=== PATIENT | female | born 1960 | race Two or more races ===

== ENCOUNTER 2020-07-30 06:59 | Emergency (ER) | payer OTHER ==
[~2020-07-30] VITALS: Ht 157.5 cm; Wt 77.1 kg
[2020-07-30] MEDS ORDERED: CLARITIN10 M1 PO (07:34)
[2020-07-30] MEDS ORDERED: PRILOSEC OTC20 MG PO (07:35)
[2020-07-30] MEDS ORDERED: FLONASE16 GM NASAL (07:35)
[2020-07-30] MEDS ORDERED: LITHOBID300 M1 PO (07:36)
[2020-07-30] MEDS ORDERED: TOPROL XL25 M1 PO (07:36)
[2020-07-30] MEDS ORDERED: DIOVAN160 M1 PO (07:37)
[2020-07-30] MEDS ORDERED: NORVASC2.5 MG PO (07:37)
[2020-07-30] MEDS ORDERED: ADULT LOW DOSE81 M1 PO (07:37)
[2020-07-30] MEDS ORDERED: ATORVASTATIN CA40 MG PO (07:38)
[2020-07-30] MEDS ORDERED: LASIX20 MG PO (07:38)
[2020-07-30] MEDS ORDERED: WIXELA 250-501 EACH IH (07:38)
[2020-07-30] MEDS ORDERED: SYNTHROID50 MCG PO (07:38)
[2020-07-30] MEDS ORDERED: DITROPAN XL10 MG PO (07:39)
[2020-07-30] MEDS ORDERED: SINGULAIR10 MG PO (07:39)
[2020-07-30] MEDS ORDERED: SEROQUEL25 MG PO (07:40)
[2020-07-30] MEDS ORDERED: JANUVIA100 MG PO (07:40)
[2020-07-30] MEDS ORDERED: CLONAZEPAM0.5 MG PO (07:40)
[2020-07-30] MEDS ORDERED: TEMAZEPAM30 MG PO (07:41)
[2020-07-30] MEDS ORDERED: ANALPRAM HC 2.530 GM RECTAL (18:17)
== END 2020-07-30 08:55 | disposition home or self-care (01) ==
LOC: ER 06:59 → EDBD 07:47 → ER 08:55
DX: K62.5 Hemorrhage of anus and rectum (principal); R10.84 Generalized abdominal pain; Z93.3 Colostomy status

== ENCOUNTER 2020-07-30 11:43 | Emergency (ER) | payer OTHER ==
[~2020-07-30] VITALS: Ht 157.5 cm; Wt 77.1 kg
[~2020-07-30 11:43] MED LIST: ADULT LOW DOSE81 M1 PO; ATORVASTATIN CA40 MG PO; CLARITIN10 M1 PO; CLONAZEPAM0.5 MG PO; DIOVAN160 M1 PO; DITROPAN XL10 MG PO; FLONASE16 GM NASAL; JANUVIA100 MG PO; LASIX20 MG PO; LITHOBID300 M1 PO; NORVASC2.5 MG PO; PRILOSEC OTC20 MG PO; SEROQUEL25 MG PO; SINGULAIR10 MG PO; SYNTHROID50 MCG PO; TEMAZEPAM30 MG PO; TOPROL XL25 M1 PO; WIXELA 250-501 EACH IH
[2020-07-30] MEDS ORDERED: ANALPRAM HC 2.530 GM RECTAL (18:17)
== END 2020-07-30 18:29 | disposition home or self-care (01) ==
LOC: ER 11:43
DX: K62.5 Hemorrhage of anus and rectum (principal); Z93.3 Colostomy status

== ENCOUNTER 2020-09-08 06:04 | Day surgery (SDC) | payer OTHER ==
[~2020-09-08 06:04] MED LIST changes: +ANALPRAM HC 2.530 GM RECTAL
== END 2020-09-08 09:40 | disposition home or self-care (01) ==
LOC: AMB-ENDOS 06:04
PROVIDERS: ATTEND Surgery
DX: K94.09 Other complications of colostomy (principal); K62.89 Other specified diseases of anus and rectum; K43.5 Parastomal hernia without obstruction or gangrene; Z20.828 Contact with and (suspected) exposure to other viral communicable diseases

== ENCOUNTER 2020-10-09 11:30 | Inpatient (IN) | payer OTHER ==
[~2020-10-09] VITALS: Ht 157.5 cm; Wt 78.9 kg
[2020-10-12] MEDS ORDERED: WELLBUTRIN XL300 MG PO (08:16)
[2020-10-12] MEDS ORDERED: VITAMIN B122500 MCG PO (08:16)
[2020-10-12] MEDS ORDERED: WIXELA 250-501 EACH IH (08:17)
[2020-10-12] MEDS ORDERED: RELAF PO (08:17)
[2020-10-12] MEDS ORDERED: SYNTHROID50 MCG PO (08:18)
[2020-10-12] MEDS ORDERED: CLONAZEPAM0.5 MG PO (08:19)
[2020-10-12] MEDS ORDERED: NAPROXEN500 MG PO (08:19)
[2020-10-12] MEDS ORDERED: LASIX20 MG PO (08:19)
[2020-10-12] MEDS ORDERED: GLIMEPIRIDE4 MG PO (08:20)
[2020-10-12] MEDS ORDERED: HYDRA PO (08:20)
[2020-10-12] MEDS ORDERED: DITROPAN XL10 MG PO (08:21)
[2020-10-12] MEDS ORDERED: DOLOGESIC 500-1 EACH PO (08:21)
[2020-10-12] MEDS ORDERED: VENTOLIN (08:22)
[2020-10-12] MEDS ORDERED: RESTORIL30 M1 PO (08:23)
[2020-10-12] MEDS ORDERED: [UNRECOGNIZED DRUG - OTHER] PO (08:23)
[2020-11-05] MEDS ORDERED: VENTOLIN HFA18 GM (15:48)
[2020-11-05] MEDS ORDERED: NABUMETONE500 MG (15:49)
[2020-11-17] MEDS ORDERED: OXYC1TAB9 PO (14:06)
[2020-11-17] MEDS ORDERED: INTESTINEX680 M1 PO (14:06)
== END 2020-11-17 17:16 | disposition home or self-care (01) | DRG 329 ==
LOC: EDBD 10-15 11:30 → SURH 10-15 11:30 → O/R 11-05 06:31 → SURH 11-05 11:30 → SURG 11-05 19:57
PROVIDERS: Surgery; ADMIT Surgery; ATTEND Surgery
PROC: 0WQF4ZZ Repair Abdominal Wall, Percutaneous Endoscopic Approach (ICD-10-PCS; 2020-11-05)
PROC: 0DTF4ZZ Resection of Right Large Intestine, Percutaneous Endoscopic Approach (ICD-10-PCS; principal; 2020-11-05 13:45)
PROC: 0DSK4ZZ Reposition Ascending Colon, Percutaneous Endoscopic Approach (ICD-10-PCS; 2020-11-05 13:45)
PROC: 4A12X4Z Monitoring of Cardiac Electrical Activity, External Approach (ICD-10-PCS; 2020-11-06)
PROC: BW2110Z Computerized Tomography (CT Scan) of Abdomen and Pelvis using Low Osmolar Contrast, Unenhanced and Enhanced (ICD-10-PCS; 2020-11-10)
DX: K94.00 Colostomy complication, unspecified (principal); K55.30 Necrotizing enterocolitis, unspecified; K43.0 Incisional hernia with obstruction, without gangrene; K57.32 Diverticulitis of large intestine without perforation or abscess without bleeding; K91.30 Postprocedural intestinal obstruction, unspecified as to partial versus complete; K43.5 Parastomal hernia without obstruction or gangrene; K52.3 Indeterminate colitis; R14.0 Abdominal distension (gaseous); I11.9 Hypertensive heart disease without heart failure; I25.10 Atherosclerotic heart disease of native coronary artery without angina pectoris; E11.9 Type 2 diabetes mellitus without complications; G47.33 Obstructive sleep apnea (adult) (pediatric); E66.01 Morbid (severe) obesity due to excess calories; Z20.822 Contact with and (suspected) exposure to COVID-19; J45.40 Moderate persistent asthma, uncomplicated

== ENCOUNTER 2020-11-04 10:42 | Outpatient (CLI) | payer OTHER ==
[~2020-11-04 10:42] MED LIST changes: +DOLOGESIC 500-1 EACH PO; +GLIMEPIRIDE4 MG PO; +HYDRA PO; +NAPROXEN500 MG PO; +RELAF PO; +RESTORIL30 M1 PO; +VENTOLIN; +VITAMIN B122500 MCG PO; +WELLBUTRIN XL300 MG PO; +[UNRECOGNIZED DRUG - OTHER] PO
[2020-11-05] MEDS ORDERED: VENTOLIN HFA18 GM (15:48)
[2020-11-05] MEDS ORDERED: NABUMETONE500 MG (15:49)
== END 2020-11-04 14:25 | disposition home or self-care (01) ==
LOC: LAB 10:42
PROVIDERS: ATTEND Surgery
DX: K52.3 Indeterminate colitis (principal); Z03.818 Encounter for observation for suspected exposure to other biological agents ruled out; Z20.822 Contact with and (suspected) exposure to COVID-19